=== PATIENT | male | born 1995 | race Caucasian/White ===

== ENCOUNTER 2019-03-14 22:52 | Emergency (ER) | payer OTHER ==
--- NOTE | 2019-03-14 23:01 | EDM.PDOC ---
ED HPI GENERAL MEDICAL PROBLEM - General Chief Complaint: Lower Extremity Injury/Pain Stated Complaint: TOE ON RT FOOT HURTS Time Seen by Provider: 03/14/19 22:58 - History of Present Illness INITIAL COMMENTS - FREE TEXT/NARRATIVE: HISTORY AND PHYSICAL: History of present illness: Patient a 23-year-old male presents with a concern of foot when he kicked a stationary object yesterday. Review of systems: As per history of present illness and below otherwise all systems reviewed and negative. Past medical history: As per history of present illness and as reviewed below otherwise noncontributory. Surgical history: As per history of present illness and as reviewed below otherwise noncontributory. Social history: No reported history of drug or alcohol abuse. Family history: As per history of present illness and as reviewed below otherwise noncontributory. Physical exam: HEENT: Atraumatic, normocephalic, pupils reactive, negative for conjunctival pallor or scleral icterus, mucous membranes moist, throat clear, neck supple, nontender, trachea midline. Lungs: Clear to auscultation, breath sounds equal bilaterally, chest nontender. Heart: S1S2, regular, negative for clicks, rubs, or JVD. Abdomen: Soft, nondistended, nontender. Negative for masses or hepatosplenomegaly. Negative for costovertebral tenderness. Pelvis: Stable nontender. Genitourinary: Deferred. Rectal: Deferred. Extremities: Right foot has some mild tenderness distal aspect with no gross deformity CMS neurovascular exam is unremarkable. Neuro: Awake, alert, oriented. Cranial nerves II through XII unremarkable. Cerebellum unremarkable. Motor and sensory unremarkable throughout. Exam nonfocal. Diagnostics: X-ray right foot Therapeutics: To be determined Impression: #1 right foot injury Definitive disposition and diagnosis as appropriate pending reevaluation and review of above. Right Foot Pain Score (Numeric/FACES): 8 - Related Data Allergies Allergy/AdvReac Type Severity Reaction Status Date / Time No Known Allergies Allergy Verified 03/14/19 22:57 Home Meds: Home Meds buPROPion HCl [Wellbutrin Xl] 300 mg PO DAILY 03/14/19 [History] Review of Systems - Review of Systems Review Of Systems: Comprehensive ROS is negative, except as noted in HPI. ED EXAM, GENERAL - Physical Exam Exam: See Below (See dictation) Course - Vital Signs Last Recorded V/S: Last Vital Signs Temp 36.6 C 03/14/19 22:55 Pulse 80 03/14/19 22:55 Resp 18 03/14/19 22:55 BP 137/82 03/14/19 22:55 Pulse Ox 97 03/14/19 22:55 Departure - Departure Time of Disposition: 23:00 Disposition: Home, Self-Care 01 Condition: Good Clinical Impression: Foot injury - Discharge Information Forms: ED Department Discharge Additional Instructions: The following information is given to patients seen in the emergency department who are being discharged to home. This information is to outline your options for follow-up care. We provide all patients seen in our emergency department with a follow-up referral. The need for follow-up, as well as the timing and circumstances, are variable depending upon the specifics of your emergency department visit. If you don't have a primary care physician on staff, we will provide you with a referral. We always advise you to contact your personal physician following an emergency department visit to inform them of the circumstance of the visit and for follow-up with them and/or the need for any referrals to a consulting specialist. The emergency department will also refer you to a specialist when appropriate. This referral assures that you have the opportunity for followup care with a specialist. All of these measure are taken in an effort to provide you with optimal care, which includes your followup. Under all circumstances we always encourage you to contact your private physician who remains a resource for coordinating your care. When calling for followup care, please make the office aware that this follow-up is from your recent emergency room visit. If for any reason you are refused follow-up, please contact the [facility] emergency department at and asked to speak to the emergency department charge nurse. Postoperative shoe as discussed Motrin/Tylenol as directed follow private medical doctor and return as needed as discussed Sepsis Event Note - Evaluation Sepsis Screening Result: No Definite Risk - Focused Exam Vital Signs: Vital Signs Temp Pulse Resp BP Pulse Ox 03/14/19 22:55 36.6 C 80 18 137/82 97 Date Exam was Performed: 03/15/19 Time Exam was Performed: 00:28
--- NOTE | 2019-03-14 23:30 | CR ---
HISTORY: Toe pain after kicking injury. COMPARISON: None available. FINDINGS: The right foot is examined with AP, lateral, and oblique views. There is no sign of fracture or dislocation. The soft tissues are normal in appearance without sign of radio-opaque foreign body. No significant degenerative disease is seen. IMPRESSION: Normal right foot. Dictated by Stephen Crawley MD @ Mar 14 2019 11:27PM Signed by Dr. Stephen Crawley @ Mar 14 2019 11:28PM
== END 2019-03-15 00:53 | disposition home or self-care (01) ==
LOC: MW.ED 22:52
DX: S99.921A Unspecified injury of right foot, initial encounter (principal); W22.09XA Striking against other stationary object, initial encounter
CPT/HCPCS: 73630-26-RT; 73630-RT; 99282; 99284-25